=== PATIENT | female | born 1985 | race Caucasian/White ===

== ENCOUNTER 2016-10-06 12:01 | Outpatient (CLI) ==
[2015-06-08 10:48] VITALS: BMI 39.1
[2016-10-06 13:32] LABS: FLU INTERNAL QC INTERNAL QC VALID; RAPID FLU A NEGATIVE (NEGATIVE); RAPID FLU B NEGATIVE (NEGATIVE)
== END 2016-10-06 12:02 | disposition home or self-care (01) ==
LOC: LAB 12:01
PROVIDERS: ATTEND Nurse Practitioner Family
DX: J02.9 Acute pharyngitis, unspecified (principal)
CPT/HCPCS: 87804

== ENCOUNTER 2017-06-16 10:38 | Outpatient (CLI) ==
[2015-06-08 10:48] VITALS: BMI 39.1
[2017-06-16 11:06] LABS: BASOPHILS % (AUTO) 0.3 % (0.0-3.0); EOSINOPHILS # (AUTO) 0.7 K/ul (0.0-0.7); EOSINOPHILS % (AUTO) 5.7 % (0.0-7.0); HEMATOCRIT 39.4 % (37.0-47.0); HEMOGLOBIN 12.7 g/dl (12.0-16.0); IMMATURE GRANULOCYTE % (AUTO) 0.3 % (0.0-5.0); LYMPHOCYTES # (AUTO) 2.8 K/uL (0.60-3.4); LYMPHOCYTES % (AUTO) 23.8 (10.0-50.0); MEAN CORPUSCULAR HEMOGLOBIN 25.1 pg (27.0-31.0); MEAN CORPUSCULAR HGB CONC 32.2 (31.8-35.4); MONOCYTES # (AUTO) 0.7 K/uL (0.4-2.0); NEUTROPHILS # (AUTO) 7.4 K/ul (2.0-6.9); NEUTROPHILS % (AUTO) 63.9; PLATELET COUNT 235 10^3/uL (140-440); RED BLOOD COUNT 5.05 10^6/ul (4.20-5.40); WHITE BLOOD COUNT 11.56 K/ul (4.6-10.2)
[2017-06-16 11:49] LABS: ALBUMIN 3.5 g/dL (3.4-5.0); ALBUMIN/GLOBULIN RATIO 0.85; ANION GAP 11.4; BILIRUBIN,TOTAL 0.46 mg/dL (0.00-1.20); BUN/CREATININE RATIO 10.52; CALCIUM 9.5 mg/dL (8.2-10.2); CREATININE 0.76 mg/dL (0.60-1.30); POTASSIUM 3.4 mmol/L (3.5-5.10); TOTAL PROTEIN 7.6 g/dL (6.4-8.2)
== END 2017-06-16 10:39 | disposition home or self-care (01) ==
LOC: LAB 10:38
PROVIDERS: ATTEND Nurse Practitioner Family
DX: E78.5 Hyperlipidemia, unspecified (principal); E66.01 Morbid (severe) obesity due to excess calories; I10 Essential (primary) hypertension
CPT/HCPCS: 36415; 80053; 80061; 84443; 85025